=== PATIENT | female | born 1960 | race Caucasian/White ===

== ENCOUNTER → 2020-11-10 | Outpatient (CLI) | payer OTHER | LOC: LAB 11-09 13:21 | DX: E78.00 Pure hypercholesterolemia, unspecified (principal) | CPT/HCPCS: 36415; 80061; 80076 ==

== ENCOUNTER → 2021-02-24 | Outpatient (CLI) | payer OTHER ==
[2021-02-24 10:15] LABS: HEMOGLOBIN 12.4 gm/dl (12.3-15.3); RED BLOOD COUNT 4.01 M/UL (4.00-5.10); WHITE BLOOD COUNT 12.9 K/UL (4.5-11.0)
[2021-02-24 10:36] LABS: BUN/CREATININE RATIO 11 (0-10)
== END ==
LOC: LAB 09:33
PROVIDERS: Family Medicine
DX: E55.9 Vitamin D deficiency, unspecified (principal); I10 Essential (primary) hypertension; R53.83 Other fatigue
CPT/HCPCS: 36415; 80053; 82043; 85027

== ENCOUNTER → 2021-06-01 | Outpatient (CLI) | payer OTHER | LOC: LAB 12:55 | DX: E78.00 Pure hypercholesterolemia, unspecified (principal); E03.9 Hypothyroidism, unspecified; Z79.899 Other long term (current) drug therapy | CPT/HCPCS: 36415; 80061; 83921; 84439; 84443 ==

== ENCOUNTER → 2021-09-07 | Outpatient (CLI) | payer OTHER ==
[2021-09-07 13:08] LABS: HEMOGLOBIN 10.8 gm/dl (12.3-15.3); RED BLOOD COUNT 3.59 M/UL (4.00-5.10); WHITE BLOOD COUNT 9.8 K/UL (4.5-11.0)
== END ==
LOC: LAB 12:08
PROVIDERS: Family Medicine
DX: I10 Essential (primary) hypertension (principal); R53.83 Other fatigue
CPT/HCPCS: 36415; 80053; 82043; 85027

== ENCOUNTER → 2021-11-22 | Outpatient (CLI) | payer OTHER | LOC: MAMO 10-14 14:00 → US 10-14 14:30 → MAMO 10-27 09:00 → US 10-27 09:30 → MAMO 11-03 08:30 → US 11-03 09:00 → MAMO 11-10 09:00 → US 11-10 13:30 → MAMO 11-15 13:30 → US 12:49 | DX: Z12.31 Encounter for screening mammogram for malignant neoplasm of breast (principal); E01.0 Iodine-deficiency related diffuse (endemic) goiter | CPT/HCPCS: 76536; 77063; 77067 ==

== ENCOUNTER → 2021-12-16 | Outpatient (CLI) | payer OTHER | LOC: LAB 10:05 | DX: E53.8 Deficiency of other specified B group vitamins (principal) | CPT/HCPCS: 36415; 82607; 83921 ==

== ENCOUNTER → 2022-05-09 | Outpatient (CLI) | payer OTHER | LOC: LAB 10:17 | PROVIDERS: Family Medicine | DX: I10 Essential (primary) hypertension (principal) | CPT/HCPCS: 36415; 80053; 80061; 84439; 84443 ==